=== PATIENT | female | born 1995 | race Asian ===

== ENCOUNTER 2017-03-01 08:41 | Emergency (ER) | payer OTHER ==
[2017-03-01 08:49] VITALS: BP 138/81
--- NOTE | 2017-03-01 09:12 | ED Physician Documentation ---
PD HPI LOWER EXT INJURY - Stated complaint Stated Complaint: RT ANKLE INJ - Chief complaint Chief Complaint: Ext Problem - History obtained from History obtained from: Patient - History of Present Illness PD HPI LOW EXT INJURY LOCATION: Right, Ankle Type of injury: Twist (inversion) Where injury occurred: Other (outdoor school basketball court) Timing - onset: Yesterday Timing - details: Abrupt onset, Still present (she thought she would rest ankle and it would be better today. Hurting and swollen today.) Worsened by: Moving, Palpating Associated symptoms: Swelling. No: Weakness, Numbness, Tingling Contributing factors: No: Anticoagulated, Prior ortho surgery Similar symptoms before: Has not had sx before Recently seen: Not recently seen Review of Systems Skin: denies: Abrasion (s), Laceration (s) Neurologic: denies: Focal weakness, Numbness PD PAST MEDICAL HISTORY - Past Medical History Past Medical History: No - Past Surgical History Past Surgical History: No - Present Medications Home Medications: Ambulatory Orders Medication Instructions Recorded Confirmed Control 1 tab PO DAILY 05/25/16 03/01/17 - Allergies Allergies/Adverse Reactions: Allergies Allergy/AdvReac Type Severity Reaction Status Date / Time No Known Drug Allergies Allergy Verified 05/25/16 17:12 - Social History Does the pt smoke?: Yes Smoking Status: Current every day smoker Does the pt drink ETOH?: No Does the pt have substance abuse?: No - Immunizations Immunizations are current?: Yes PD ED PE NORMAL - Vitals Vital signs reviewed: Yes - General General: Alert and oriented X 3, No acute distress, Well developed/nourished - Derm Derm: Normal color, Warm and dry, No rash - Extremities Extremities: Other (right ankle tender with some swelling inferior to lateral malleolus. No gross laxity with inversion stress. ) - Neuro Neuro: Alert and oriented X 3, No motor deficit, No sensory deficit Results - Vitals Vitals: Vital Signs - 24 hr 03/01/17 08:46 Heart Rate 86 Respiratory 18 Rate Blood Pressure 138/81 H O2 Saturation 100 Oxygen O2 Source Room air - Rads (name of study) ankle Radiology: Prelim report reviewed, EMP read contemporaneously (no fractures) PD MEDICAL DECISION MAKING - ED course Complexity details: considered differential, d/w patient Departure - Departure Disposition: 01 Home, Self Care Clinical Impression: Ankle sprain Qualifiers: Encounter type: initial encounter Involved ligament of ankle: other ligament Laterality: right Qualified Code(s): S93.491A - Sprain of other ligament of right ankle, initial encounter Condition: Stable Record reviewed to determine appropriate education?: Yes Instructions: ED Sprain Ankle W X Ray Follow-Up: Anyi Calderon MD [Primary Care Provider] - Comments: Ibuprofen 2-3 times daily for 4-5 days. Add Tylenol 650 mg every 4-6 hours if needed for pain. Ankle brace when walking/standing for 1-2 weeks until fully better. Recheck if not improved over the next 3-5 days. Forms: Activity restrictions Discharge Date/Time: 03/01/17 09:41
--- NOTE | 2017-03-01 09:18 | XRAY Preliminary Report ---
Exam: XR Ankle 3 View RT IMPRESSION: 1. No acute osseous abnormalities. [facility] SITE ID: [id number]
--- NOTE | 2017-03-01 09:21 | XRAY Report ---
EXAM: RIGHT ANKLE RADIOGRAPHY EXAM DATE: 03/01/2017 08:51 AM. CLINICAL HISTORY: Right ankle injury. Ankle pain. Pain at lateral malleolus. COMPARISON: None. TECHNIQUE: 3 views. FINDINGS: Bones: Normal. No fractures or bone lesions. Joints: Ankle mortise is well-maintained. No dislocation. Right ankle effusion. Soft Tissues: Soft tissue swelling. IMPRESSION: 1. No acute osseous abnormalities. [facility] Referring Provider Line: [phone] SITE ID: [id number]
[2017-03-01] MEDS ORDERED: ACETAMINOPHEN 325 MG TABLET PO STA (09:22)
[2017-03-01] MEDS ORDERED: ACETAMINOPHEN 325 MG TABLET PO ONE (09:27)
== END 2017-03-01 09:41 | disposition home or self-care (01) ==
LOC: ED 08:41
DX: S93.491A Sprain of other ligament of right ankle, initial encounter (principal); X50.0XXA Overexertion from strenuous movement or load, initial encounter; Y93.67 Activity, basketball; Y92.219 Unspecified school as the place of occurrence of the external cause; F17.200 Nicotine dependence, unspecified, uncomplicated
CPT/HCPCS: 73610; 99283; A9270

== ENCOUNTER 2019-11-03 11:17 | Emergency (ER) | payer OTHER ==
[2019-11-03 11:24] VITALS: BP 106/59
[2019-11-03] MEDS ORDERED: BUFFERED LIDOCAINE 10 ML SYRINGE SUBQ STA (11:33)
--- NOTE | 2019-11-03 11:35 | ED Physician Documentation ---
History of Present Illness - Stated complaint Stated Complaint: FEMALE - Chief complaint Chief Complaint: General - History obtained from History obtained from: Patient (She is a at 10 weeks gestation who noticed a painful lump lateral to the right labia this morning without fevers chills or drainage.) Review of Systems Constitutional: denies: Fever, Chills Cardiac: reports: Reviewed and negative Respiratory: reports: Reviewed and negative PD PAST MEDICAL HISTORY - Past Surgical History Past Surgical History: No - Present Medications Home Medications: Ambulatory Orders Medication Instructions Recorded Confirmed Control 1 tab PO DAILY 05/25/16 03/01/17 - Allergies Allergies/Adverse Reactions: Allergies Allergy/AdvReac Type Severity Reaction Status Date / Time No Known Drug Allergies Allergy Verified 05/25/16 17:12 - Social History Does the pt smoke?: Yes Smoking Status: Current every day smoker Does the pt drink ETOH?: No Does the pt have substance abuse?: No - Immunizations Immunizations are current?: Yes PD ED PE NORMAL - Vitals Vital signs reviewed: Yes - General General: Alert and oriented X 3, No acute distress - Female Female : Other (There is a less than 1 cm pointed sebaceous cyst that is tender just lateral to the anterior right labia, all exams and interventions done with Darline the nurse at the bedside. Bedside ultrasound demonstrates single live intrauterine with heart rate of 160.) - Neuro Neuro: Alert and oriented X 3, Normal speech Results - Vitals Vitals: Vital Signs - 24 hr 11/03/19 11:21 Temperature 36.6 C Heart Rate 61 Respiratory 16 Rate Blood Pressure 106/59 L O2 Saturation 99 Oxygen O2 Source Room air Procedures - Abscess I&D (location) R labia Preparation: Betadine, Lidocaine 1% Incision: Needle aspiration, Purulent drainage (tiny amt) Other: Pt tolerated well, Dressing applied. No: Antibiotic prescribed (too small) Departure - Departure Disposition: 01 Home, Self Care Clinical Impression: Sebaceous cyst Qualifiers: Weeks of gestation: 10 weeks Qualified Code(s): Z3A.10 - 10 weeks gestation of Condition: Good Record reviewed to determine appropriate education?: Yes Instructions: ED Cyst Sebaceous Infec IandD, ED Preg Established Normal Sxs Comments: Return if it swells up again or causes pain.
== END 2019-11-03 11:49 | disposition home or self-care (01) ==
LOC: ED 11:17
DX: O99.89 Other specified diseases and conditions complicating pregnancy, childbirth and the puerperium (principal); N94.89 Other specified conditions associated with female genital organs and menstrual cycle; O99.331 Smoking (tobacco) complicating pregnancy, first trimester; Z3A.10 10 weeks gestation of pregnancy
CPT/HCPCS: 56405

== ENCOUNTER 2020-04-13 09:34 | Outpatient (CLI) | payer OTHER ==
[2020-04-13 18:18] LABS: ALBUMIN 3.6 g/dL (3.2-5.5); CALCIUM 9.3 mg/dL (8.5-10.3); CREATININE 0.5 mg/dL (0.4-1.0); TOTAL PROTEIN 7.3 g/dL (6.7-8.2)
== END 2020-04-13 09:35 | disposition home or self-care (01) ==
LOC: LAB 09:34
PROVIDERS: ATTEND Nurse Practitioner Obstetrics & Gynecology
DX: L29.9 Pruritus, unspecified (principal)
CPT/HCPCS: 36415; 80053; 82239

== ENCOUNTER 2020-05-04 10:33 | Outpatient (CLI) | payer OTHER | END 2020-05-04 23:59 | disposition home or self-care (01) | LOC: LAB.R 10:33 | PROVIDERS: ATTEND Nurse Practitioner Obstetrics & Gynecology | DX: Z36.85 Encounter for antenatal screening for Streptococcus B (principal) | CPT/HCPCS: 87797 ==

== ENCOUNTER 2020-05-26 08:18 | Outpatient (CLI) | payer OTHER ==
[2020-05-26 08:29] VITALS: BP 123/84
--- NOTE | 2020-07-16 07:14 | PROVIDER PROGRESS NOTE ---
- HPI Chief Complaint: Labor Check Current : Current EDU 05/27/20 Gestation 39 Weeks and 6 Days 1 Para 0 Vital Signs Temperature 37.0 C 05/26/20 08:25 Heart Rate 83 05/26/20 08:25 Respiratory Rate 18 05/26/20 08:25 Blood Pressure 123/84 H 05/26/20 08:25 O2 Saturation 98 05/26/20 08:25 Temperature 37.0 C 05/26/20 08:25 Heart Rate 83 05/26/20 08:25 Respiratory Rate 18 05/26/20 08:25 Blood Pressure 123/84 H 05/26/20 08:25 O2 Saturation 98 05/26/20 08:25 - Plan Plan: S: Soo presents for a term labor check O: FHTs per RN charting at 39.6wks gestation IM therpeutics for rest A: at 39.6 wks not in labor, membranes intact FHTs reassuring P: Send home with labor precautions Continue routine care
== END 2020-05-26 10:45 | disposition home or self-care (01) ==
LOC: WFO 08:18 → FBP 08:20 → WFO 10:45
PROVIDERS: ATTEND Advanced Practice Midwife
DX: Z34.03 Encounter for supervision of normal first pregnancy, third trimester (principal); Z3A.39 39 weeks gestation of pregnancy
CPT/HCPCS: 99213

== ENCOUNTER 2020-05-26 22:18 | Outpatient (CLI) | payer OTHER ==
[2020-05-26 22:32] VITALS: BP 128/79
[2020-05-26] MEDS ORDERED: MORPHINE 10 MG/ML VIAL IM ONE (23:40)
[2020-05-26] MEDS ORDERED: PROMETHAZINE 25 MG/1 ML VIAL IM ONE (23:40)
--- NOTE | 2020-07-18 12:48 | PROVIDER PROGRESS NOTE ---
- HPI Chief Complaint: Labor Check Current : Current EDU 05/27/20 Gestation 39 Weeks and 6 Days 1 Para 0 Vital Signs Temperature 36.6 C 05/26/20 22:30 Heart Rate 93 05/26/20 22:30 Respiratory Rate 18 05/26/20 22:30 Blood Pressure 128/79 05/26/20 22:30 Temperature 36.6 C 05/26/20 22:30 Heart Rate 93 05/26/20 22:30 Respiratory Rate 18 05/26/20 22:30 Blood Pressure 128/79 05/26/20 22:30 O2 Saturation - Plan Plan: S: Soo presents for a term labor check O: FHTs per RN charting at 39.6wks gestation IM therpeutics for rest A: at 39.6 wks not in labor, membranes intact FHTs reassuring P: Send home with labor precautions Continue routine care
== END 2020-05-27 00:05 | disposition home or self-care (01) ==
LOC: WFO 22:18 → FBP 22:20 → WFO 05-27 00:05
PROVIDERS: ATTEND Advanced Practice Midwife
DX: Z34.03 Encounter for supervision of normal first pregnancy, third trimester (principal); Z3A.39 39 weeks gestation of pregnancy
CPT/HCPCS: 99213; 99214

== ENCOUNTER 2020-05-27 11:43 | Inpatient (IN) | payer OTHER ==
[2020-05-27] MEDS ORDERED: CARBOPROST TROMETHAMINE 250 MCG/ML AMP IM PRN (12:12)
[2020-05-27] MEDS ORDERED: METHYLERGONOVINE 0.2 MG/ML VIAL IM PRN (12:12)
[2020-05-27] MEDS ORDERED: OXYTOCIN/SODIUM CHLORIDE 500 ML IV PRN ×2 (12:12)
[2020-05-27] MEDS ORDERED: TRANEXAMIC ACID 1,000 MG in SODIUM CHLORIDE 0.9% 100ML 100 ML IV PRN (12:12)
[2020-05-27] MEDS ORDERED: ONDANSETRON 4 MG/2 ML VIAL IVP PRN (12:12)
[2020-05-27] MEDS ORDERED: miSOPROStoL 200 MCG TABLET BC PRN (12:12)
[2020-05-27] MEDS ORDERED: LIDOCAINE-MPF 1% 30 ML VIAL ID PRN (12:12)
[2020-05-27] MEDS ORDERED: OXYTOCIN 10 UNIT/ML VIAL IM PRN (12:12)
[2020-05-27] MEDS ORDERED: SODIUM CHLORIDE FLUSH 0.9% 10 ML SYRINGE IVP PRN (12:12)
--- NOTE | 2020-05-27 12:41 | HISTORY & PHYSICAL EXAMINATION ---
Admit History - : 1 Parity: 0 Premature: 0 Ectopic: 0 : 0 Care: positive: [place], Other ([facility]) Risk/History: positive: None Complications This : positive: None Smoking Status: Current every day smoker - Mother's Labs Mother's Blood Type: positive: AB Mother's RH: positive: Positive GBS: positive: Group B Step Negative Rubella Status: positive: Immune - Other Maternal History Other Maternal History: -25yo at 40.0wks gestation who presents to Labor and Delivery with report of contractions that have intensified this morning -Reports movement -Denies ctx/VB/LOF - care with [facility] which has been adequate, after transfer from [facility] at 31.5wks - Complications *None -Dating Criteria *10.5wk US c/w LMP -OB Hx *G1:current -Medications * vitamin-daily *Miralax-daily *Docusate- daily -Allergies *NKDA -Medical History *Non contributory -Surgical History *Tooth Extraction 2013, 2014 -Family History *Non contributory -Social History *Non contributory - Labs, Immunizations, and Findings *Initial U/S: at 10.5wk /w LMP for YOEL 05/27/2020 AB pos/Rubella immune VZV non immuneTo offer in hospital and at 6wk pp* Gentic testing: Serum Int- neg FAS: Placenta anterior "with a smaller segment noted along the right side, co nnected with a band of placental tissue to the larger segment" 3VC, ANNETTE wnl. EFW 57%. Glucola: early 87, 28wk 119 TDAP: 02/29/2020 Influenza: 05/04/2020 GBS NEG HSV: denies self and partner Breast pump Rx : received and pump MOD: . Desires NCB- book recc given. FOB: Gal. BOY: [place] pp contraception: Undecided. [place] condoms. Discussed Mirena. Had implant and was very irregular bleeding and suspected mood changes. PAP: 03/09/2019-neg. Next due 2021. -SVE /-1 -Vertex by digital exam -FHTs as above -Assessment *25yo at 40.0wks gestation who presents in early active labor * Heart Tones- Category I -Plan *Admit to Labor and Delivery *Monitoring- Continuous until reassuring, then Intermittent per protocol *Comfort measures available- position changes, whirlpool tub, fentanyl, and epidural per maternal preference *Diet/Activity- per maternal preference *Anticipate Meds/Allgy - Allergies Allergies/Adverse Reactions: Allergies Allergy/AdvReac Type Severity Reaction Status Date / Time No Known Drug Allergies Allergy Verified 05/25/16 17:12 Review of Systems - All Other Systems All Other Systems: reports: Reviewed and negative Physical - Abdominal Exam Vital Signs: Temp Pulse Resp BP Pulse Ox 38.6 C H 85 20 127/91 H 100 05/27/20 12:02 05/27/20 12:02 05/27/20 12:02 05/27/20 12:02 05/27/20 12:02 Contraction Frequency (min/apart): 3-5 Contraction Intensity: positive: Moderate to strong Uterine Resting Tone: positive: Soft - Monitoring Strip Review: positive: Category I - Presentation Presentation: positive: Vertex - Vaginal Exam Membranes: positive: Membranes intact Dilation (in cm): 4 Effacement (%): 80 Station: positive: -1 Cervical Position: positive: Midposition Plan for Labor - Plan For Labor I expect patient to be DC'd or transferred within 96 hours.: Yes
[2020-05-27 13:23] LABS: BASOPHILS # (AUTO) 0.1 10^3/uL (0.0-0.1); BASOPHILS % (AUTO) 0.3 %; EOSINOPHILS % (AUTO) 0.1 %; HGB - HEMOGLOBIN 13.5 g/dL (12.0-16.0); LYMPHOCYTES % (AUTO) 5.5 %; MEAN CORPUSCULAR HEMOGLOBIN 31.8 pg (27.0-31.0); MEAN CORPUSCULAR HGB CONC 34.4 g/dL (32.0-36.0); MEAN CORPUSCULAR VOLUME 92.2 fL (81.0-99.0); MEAN PLATELET VOLUME 10.4 fL (7.9-10.8); MONOCYTES # (AUTO) 0.8 10^3/uL (0.0-1.0); MONOCYTES % (AUTO) 4.3 %; NEUTROPHILS # (AUTO) 15.5 10^3/uL (1.5-6.6); NEUTROPHILS % (AUTO) 89.1 %; PLT - PLATELET COUNT 211 10^3/uL (130-450); RED BLOOD COUNT 4.25 10^6/uL (4.20-5.40); RED CELL DISTRIBUTION WIDTH 12.8 % (12.0-15.0); WHITE BLOOD COUNT 17.4 x10^3/uL (4.8-10.8)
[2020-05-27] MEDS ORDERED: SODIUM CHLORIDE FLUSH 0.9% 10 ML SYRINGE IVP SCH (17:00)
--- NOTE | 2020-05-27 17:19 | PROVIDER PROGRESS NOTE ---
Labor Progress Note - Uterine Monitoring Uterine Monitoring Mode: positive: External toco Contraction Frequency (min/apart): 3-5 Contraction Intensity: positive: Strong Uterine Resting Tone: positive: Soft - Monitoring Monitor Mode: positive: External ultrasound Heart Rate Baseline: 160 Heart Rate Variability: positive: Moderate (6-25 bmp) Accelerations: positive: Present, 15x15 Decelerations: positive: None Strip Review: positive: Category I (Baseline rising noted) - Vaginal Exam Dilation (in cm): 8 Effacement (%): 90 Station: 0 Cervical Position: Anterior - Labor Progress Note Labor Progress Note/Additional Text: S: Dimple is working hard through contractions, using movement, breathe, and vocalizations to manage intensity of contractions. She is aware of pharmacological support available, and has not expressed desire for that, at this time. Her partner is supportive at bedside. O: Afebrile FHTs baseline 155-165, moderate variability, accels, and no consistent decelerations AROM for clear, moderate fluid A: 25yo at 40.0 wks gestation Active Labor P: Anticipate Continuous monitoring Establish IV access (current IV infiltrated) LR bolus to address climbing baseline
[2020-05-27] MEDS: LACTATED RINGERS 1,000 ML IV SCH (17:49)
[2020-05-27] MEDS ORDERED: WITCH HAZEL/GLYCERIN 1 PAD TOP PRN (20:38)
[2020-05-27] MEDS ORDERED: HYDROCORTISONE 1% CREAM 28 GM TUBE PR PRN (20:38)
--- NOTE | 2020-05-27 20:47 | DELIVERY NOTE ---
Delivery Note - Labor Labor: positive: Spontaneous, Augmented by ARM - Infant Delivery Method Delivery Method: positive: Spontaneous vaginal delivery - Presentation Presentation: positive: Vertex, OA - occiput anterior - Nuchal Cord Nuchal Cord: positive: None - Amniotic Fluid Description Amniotic Fluid Description: positive: Clear - Laceration Laceration: positive: 1st degree, Periurethral - Suture Suture Type: positive: Vicryl Suture Size: positive: 3-0 - Delivery Outcome Delivery Outcome: positive: Livebirth - Liebenthal Liebenthal: positive: Placed in direct skin contact with mother, Bulb syringe, Stimulated, [place] used sex: positive: Male - Cord Cord: positive: 3 vessels - Placenta Placenta: positive: Intact, Spontaneous - Estimated Blood Loss Estimated Blood Loss (in cc): 150 - Post Delivery Events Post Delivery Events: positive: No post delivery events - Delivery Comments (Free Text/Narrative) Delivery Comments (Free Text/Narrative): Note: Labor: This 25 year old, , @40.0wks gestation presented @ noon in early active labor. Cervix was 4/80/-1 and vertex. FHR pattern demonstrated 135 baseline in a Category I pattern. Normal labor course. AROM occurred @ 1702 and amount and color of fluid were noted to be moderate and clear. : Normal of a 3530gm male on 05/27/2020 @ 1929. Nuchal not present. Baby was delivered in hands and knees, and mother lifted baby to her chest on her own. They were then rotated to a reclined position. The was placed on maternal abdomen, stimulated, dried and placed skin to skin. Apgars 8 at one minute and 9 at five minutes. The umbilical cord was allowed to stop pulsating at which time it was doubly clamped by CNM and cut by FOB. Physiologic management of hemostasis was done, with hemm kit at bedside. Fundal massage and gentle cord traction applied for active third stage management. Cord blood was obtained. Placenta delivered spontaneously and intact at 1950. Three vessel cord. EBL 150mL. Fourth Stage: Uterine fundus firm and without excessive bleeding. The perineum, vagina, and cervix were inspected and found to have sustained bilateral first degree periurethral lacerations. Using lidocaine for anesthesia, the repair was performed under sterile conditions in standard fashion. Vaginal examination following repair was done. Tissues well approximated. initiated. Family bonding well. Both mother and baby are in stable condition.
[2020-05-27] MEDS: ACETAMINOPHEN 500 MG TABLET PO SCH (21:15)
[2020-05-27] MEDS: IBUPROFEN 600 MG TABLET PO SCH (21:16)
[2020-05-28] MEDS: IBUPROFEN 600 MG TABLET PO SCH ×4 (03:28→19:36)
[2020-05-28] MEDS: ACETAMINOPHEN 500 MG TABLET PO SCH ×3 (04:45→23:59)
--- NOTE | 2020-05-28 12:53 | PROVIDER PROGRESS NOTE ---
Subjective - Prog Note Date Prog Note Date: 05/28/20 Prog Note Time: 12:30 - Subjective Pt reports feeling: Improved Subjective: S: Dimple is resting in bed holding baby. FOB is supportive at bedside. She reports some tenderness in her bottom, and feels oral pain meds are adequate for management. She reports has been a struggle, as baby had fluid/mucus in their tummy overnight, but is doing better now. O: Fundus firm lochia rubra-light Afebrile A: 25yo s/p on pp day 1 VSS normal course perineum healing well P: routine care Evaluate for discharge home tomorrow Objective - Vital Signs/Intake & Output Vital Signs: Vital Signs x48h Temp Pulse Pulse Resp BP Pulse Ox 05/28/20 08:09 36.7 C 78 78 16 104/67 98 Intake & Output: Intake & Output 05/25/20 05/26/20 05/27/20 05/28/20 23:59 23:59 23:59 23:59 Intake Total 1092.6 Output Total 50 Balance 1042.6 - Lab Results Fish Bones: 05/27/20 13:05 Other Labs: Lab Results x24hrs 05/27/20 05/27/20 Range/Units 13:05 11:53 WBC 17.4 H (4.8-10.8) x10^3/uL RBC 4.25 (4.20-5.40) 10^6/uL Hgb 13.5 (12.0-16.0) g/dL Hct 39.2 (37.0-47.0) % MCV 92.2 (81.0-99.0) fL MCH 31.8 H (27.0-31.0) pg MCHC 34.4 (32.0-36.0) g/dL RDW 12.8 (12.0-15.0) % Plt Count 211 (130-450) 10^3/uL MPV 10.4 (7.9-10.8) fL Neut # (Auto) 15.5 H (1.5-6.6) 10^3/uL Lymph # (Auto) 1.0 L (1.5-3.5) 10^3/uL [place] # (Auto) 0.8 (0.0-1.0) 10^3/uL Eos # (Auto) 0.0 (0.0-0.7) 10^3/uL Baso # (Auto) 0.1 (0.0-0.1) 10^3/uL Absolute Nucleated RBC 0.00 x10^3/uL Nucleated RBC % 0.0 /100WBC Blood Type AB POSITIVE Antibody Screen NEGATIVE
[2020-05-29] MEDS: IBUPROFEN 600 MG TABLET PO SCH ×2 (01:46→08:21)
[2020-05-29] MEDS: LACTATED RINGERS 1,000 ML IV SCH (07:26)
[2020-05-29] MEDS: ACETAMINOPHEN 500 MG TABLET PO SCH (08:21)
[2020-05-29 08:34] VITALS: BP 112/71
--- NOTE | 2020-05-29 09:20 | PROVIDER PROGRESS NOTE ---
Subjective - Subjective Subjective: FINAL PROGRESS NOTE: S: Bonding well with baby. with little difficulty. Bleeding decreased and is light. Pain well controlled with oral medications. Baby is being transferred secondary to inability to urinate and potential bladder obstruction. They are slightly stressed about this appropriately but overall coping well and are anxious to have answers and a plan of care. Partner supportive at the bedside. O: BP 113/63, T 36.6, HR 69, RR 18 Admit Hgb 13.5; Hct 39.2 Heart RRR w/o M/G/R, lungs CTAB, abdomen soft and nontender with fundus firm at U-2. Perineum intact, repair with mild edema. Light lochia rubra, bilateral LE's trace edema. Mood is good. A: 25yo -->P1 s/p TSVD of viable male infant 1st degree perineal laceration - intact Normal recovery P: Reviewed pp self care and warning s/sx. Advised continuation of PNV while . Advised continued ibuprofen and tylenol OTC PRN pain. F/u in 1 week for support pp visit or sooner PRN. Pt and partner at the bedside both verbalized understanding and agree to above plan. They deny further questions or concerns at this time. Objective - Vital Signs/Intake & Output Vital Signs: Vital Signs x48h Temp Pulse Resp BP Pulse Ox 05/29/20 08:34 36.9 C 80 16 112/71 100 Intake & Output: Intake & Output 05/26/20 05/27/20 05/28/20 05/29/20 23:59 23:59 23:59 23:59 Intake Total 1092.6 0 Output Total 50 Balance 1042.6 0 - Lab Results Fish Bones: 05/27/20 13:05
--- NOTE | 2020-05-29 09:21 | Discharge Plan ---
Discharge Plan Problem Reviewed?: Yes Disposition: Home, Self Care Condition: Good Diet: Regular Activity Restrictions: No Restrictions Shower Restrictions: No Weight Bearing: Full Weight No Smoking: If you smoke, Please STOP! Call for help. Follow-up with: Yani Rich CNM, ARNP [Provider Admit Priv/Credential] -
--- NOTE | 2020-05-29 11:00 | DISCHARGE SUMMARY ---
Physician: NAN Avalos DATE OF ADMISSION: 05/27/2020 DATE OF DISCHARGE: 05/29/2020 DIAGNOSES ON ADMISSION 1. A 25-year-old, G1, P0 at 40 weeks' gestation. 2. Active labor. 3. Group B streptococcus negative. DIAGNOSES ON DISCHARGE 1. A 25-year-old, G1, P1-0-0-1, status post spontaneous vaginal delivery on 05/27/2020. 2. Normal recovery. BRIEF HISTORY: She is a patient of [facility], who presented on 05/27/2020 with complaints of contractions. Cervix was 4 cm dilated, 80% effaced, -1 station, in vertex position. The patient was augmented with artificial rupture of membranes. She progressed to spontaneously deliver a viable male infant on 05/27/2020 at 1929. Apgars were 8 and 9 at one and five minutes respectively. EBL 150 mL. The patient was noted to have bilateral first-degree periurethral lacerations, which were repaired in standard fashion under sterile conditions. She has been doing well in her course. She is ambulating and tolerating a regular diet. She is urinating without difficulty, and her lochia is normal. Her pain is well controlled with oral medications. She will be discharged home today on day #2 with instructions to continue her vitamin while , and to continue ibuprofen and Tylenol [id number] as needed for pain management. She intends to follow up with myself at [facility] in 1 week for routine visit or sooner if needed. She has been given precautions to call if she has any worsening fevers, chills, abdominal pain, increased bleeding or foul-smelling vaginal lochia. TD: 05/29/2020 09:26 LOUISE
--- NOTE | 2020-05-29 14:12 | Labor Flowsheet ---
Labor Flowsheet Datetime Report Generated by CPN: 05/29/2020 14:12 Datetime: 05/29/2020 07:55 VITAL SIGNS NBP Sys/Gisselle/Mean (mmHg): 112 : 71 : 82 Pulse: 77 SpO2 (%): 100 LaborFlag: Labor Datetime: 05/27/2020 19:25 UTERINE ACTIVITY Monitor Mode: External Frequency (min): 2-3 Quality: Moderate Duration (sec): 80 Pattern: Normal: <= 5 Contractions in 10 Minutes Resting Tone (Palpate): Relaxed ASSESSMENT A Monitor Mode: External US FHR Baseline Rate : 140 Variability: Moderate 6-25 bpm Accelerations: 15X15 Decelerations: None Category: Category I Datetime: 05/27/2020 19:06 COMMUNICATION Communication: Report Given to @ K. Sharma RN Datetime: 05/27/2020 19:01 STAGE 2 Pushing: Urge to Push; Involuntary Pushing Pushing Position: Pushing with Contractions Datetime: 05/27/2020 19:00 Patient Position/Activity: Hands-Knees Datetime: 05/27/2020 18:56 VAGINAL EXAM Dilatation (cm): 10.0 Effacement (%): 100 Exam by: zack Datetime: 05/27/2020 18:45 Contraction Comments: ctx pattern indeterminate d/t pt position and movement during and between ctx . Datetime: 05/27/2020 18:33 PATIENT CARE IV/Blood Work: IV Bolus Given ml @ 700 Patient Care Comments: bolus infused Datetime: 05/27/2020 17:03 Membrane Status: Ruptured Membranes Rupture Method: Artificial Amniotic Fluid Color: Clear Amniotic Fluid Amount: Moderate Amniotic Fluid Odor: Normal Datetime: 05/27/2020 17:01 Station: 0 Datetime: 05/27/2020 15:04 Monitor Interventions for UA: [place] Adjusted Datetime: 05/27/2020 14:57 I/O Interventions: Up to BR Datetime: 05/27/2020 14:36 Comfort Measures: Breathing/Relaxation; Coaching; Family Support Datetime: 05/27/2020 12:18 Temperature (C): 36.6 Temperature Route: Oral
== END 2020-05-29 14:00 | disposition home or self-care (01) | DRG 807 ==
LOC: WFO 11:43 → FBP 11:44 → WFO 12:06 → FBP 12:07
PROVIDERS: ADMIT Advanced Practice Midwife; ATTEND Advanced Practice Midwife
PROC: 0UQMXZZ Repair Vulva, External Approach (ICD-10-PCS; principal; 2020-05-27)
PROC: 10E0XZZ Delivery of Products of Conception, External Approach (ICD-10-PCS; 2020-05-27)
PROC: 10907ZC Drainage of Amniotic Fluid, Therapeutic from Products of Conception, Via Natural or Artificial Opening (ICD-10-PCS; 2020-05-27)
DX: O71.82 Other specified trauma to perineum and vulva (principal); Z37.0 Single live birth; Z3A.40 40 weeks gestation of pregnancy; Z87.891 Personal history of nicotine dependence
CPT/HCPCS: 36415; 59025; 85025; 86850; 86900; 86901; 99213; A9270; J7120

== ENCOUNTER 2020-05-31 10:25 | Outpatient (CLI) | payer OTHER ==
--- NOTE | 2020-05-31 11:23 | Labor Flowsheet ---
Labor Flowsheet Datetime Report Generated by CPN: 05/31/2020 11:23 Datetime: 05/29/2020 07:55 VITAL SIGNS NBP Sys/Gisselle/Mean (mmHg): 112 : 71 : 82 Pulse: 77 SpO2 (%): 100 LaborFlag: Labor Datetime: 05/27/2020 19:25 UTERINE ACTIVITY Monitor Mode: External Frequency (min): 2-3 Quality: Moderate Duration (sec): 80 Pattern: Normal: <= 5 Contractions in 10 Minutes Resting Tone (Palpate): Relaxed ASSESSMENT A Monitor Mode: External US FHR Baseline Rate : 140 Variability: Moderate 6-25 bpm Accelerations: 15X15 Decelerations: None Category: Category I Datetime: 05/27/2020 19:06 COMMUNICATION Communication: Report Given to @ K. Sharma RN Datetime: 05/27/2020 19:01 STAGE 2 Pushing: Urge to Push; Involuntary Pushing Pushing Position: Pushing with Contractions Datetime: 05/27/2020 19:00 Patient Position/Activity: Hands-Knees Datetime: 05/27/2020 18:56 VAGINAL EXAM Dilatation (cm): 10.0 Effacement (%): 100 Exam by: zack Datetime: 05/27/2020 18:45 Contraction Comments: ctx pattern indeterminate d/t pt position and movement during and between ctx . Datetime: 05/27/2020 18:33 PATIENT CARE IV/Blood Work: IV Bolus Given ml @ 700 Patient Care Comments: bolus infused Datetime: 05/27/2020 17:03 Membrane Status: Ruptured Membranes Rupture Method: Artificial Amniotic Fluid Color: Clear Amniotic Fluid Amount: Moderate Amniotic Fluid Odor: Normal Datetime: 05/27/2020 17:01 Station: 0 Datetime: 05/27/2020 15:04 Monitor Interventions for UA: [place] Adjusted Datetime: 05/27/2020 14:57 I/O Interventions: Up to BR Datetime: 05/27/2020 14:36 Comfort Measures: Breathing/Relaxation; Coaching; Family Support Datetime: 05/27/2020 12:18 Temperature (C): 36.6 Temperature Route: Oral
== END 2020-05-31 11:15 | disposition home or self-care (01) ==
LOC: WFO 10:25 → FBP 10:28 → WFO 11:15
PROVIDERS: ATTEND Obstetrics & Gynecology
DX: O92.70 Unspecified disorders of lactation (principal)
CPT/HCPCS: 99404